=== PATIENT | female | born 1965 | race Caucasian/White ===

== ENCOUNTER 2020-04-12 10:55 | Emergency (ER) | payer MEDICAID ==
[~2020-04-12] VITALS: Ht 172.7 cm; Wt 45.4 kg
--- NOTE | 2020-04-12 12:03 | NUR ---
PATRICIA Mccurdy Note: ANNIA TRUONG Addendum: 04/12/20 at 1203 by DEYANIRA SW. FELICIA KINSEY
--- NOTE | 2020-04-12 12:51 | NUR ---
Social Work This SW received a consult from the ED due to homelessness. This SW met with patient who is homeless, stating she is does not have any income, recently moved to [facility] from [place] and not receiving any benefits here, i.e. [employer], [employer]. Patient requesting senior living information. Patient will also require follow with outpatient mental health services, along with primary MD. This SW provided instruction, address and map (to take the bus) to the senior living of patients choice (list provided to choose from). Patient requesting to discharge to the [facility], as well as plans to follow up with [facility] Print Line Supervisor for GR and food stamps (when able; currently closed due to COVID). This SW provided address and map routes for both, along with Mental Health and [facility] (for [facility]). Patient stating she had spoken with [facility]: Baljinder Serrano @ [phone]; waiting for a bed. This SW left a message with Baljinder; awaiting call back at this time. Patient aware to continue making efforts to contact Baljinder. Patient also plans to reapply for a free phone (expressing awareness regarding the process for this). Social Security office location provided; patient to apply for SSI, when able. Patient remains alert/oriented x4, making own decisions. Patient also remains independent with all ADLS, ambulatory throughout the ED, to the nurses station. No other needs or concerns; patient does not verbalize any SI/HI, pleasant and cooperative.
--- NOTE | 2020-04-12 14:00 | NUR ---
ELOPEMENT: pt. left ER screaming before getting her d/c instructions with prescription
[2020-04-12 20:11] VITALS: BP 136/81
--- NOTE | 2020-04-13 16:27 | Emergency Room Report ---
History of Present Illness General Chief Complaint: Skin Rash/Abscess Source: Patient Present Illness HPI 55-year-old female presents the ED for evaluation. States she has parasites growing in her head and and under her skin. States she brought samples of the parasites to look out. States she is been seen on multiple hospitals and states nothing was done for her. States she came here from [place]. States she does not have a identification or place to stay. Denies substance use. Denies SI or HI. No other aggravating relieving factors. Denies any other associated symptoms Allergies: Coded Allergies: PENICILLINS (Verified Allergy, Unknown, 04/12/20) SULFA (SULFONAMIDE ANTIBIOTICS) (Verified Allergy, Unknown, 04/12/20) COVID-19 Screening Contact w/high risk pt: No Experienced COVID-19 symptoms?: No COVID-19 Testing performed DIRECTOR OF BUSINESS DEVELOPMENT: No Patient History Past Medical History: psych hx Past Surgical History: none Pertinent Family History: none Social History: Denies: smoking, alcohol use, drug use Last Menstrual Period: na Now: No Immunizations: UTD Reviewed Nursing Documentation: PMH: Agreed; PSxH: Agreed Nursing Documentation-PMH Past Medical History: No History, Except For History Of Psychiatric Problem: Yes - depression Review of Systems All Other Systems: negative except mentioned in HPI Physical Exam Vital Signs Date Time Temp Pulse Resp B/P (MAP) Pulse Ox O2 Delivery O2 Flow Rate FiO2 04/12/20 11:20 98.2 77 20 136/81 (99) 98 Room Air Sp02 EP Interpretation: reviewed, normal General Appearance: no apparent distress, alert, GCS 15, non-toxic Head: normocephalic, atraumatic Eyes: bilateral eye normal inspection, bilateral eye PERRL ENT: hearing grossly normal, normal pharynx, no angioedema, normal voice Neck: full range of motion, supple/symm/no masses Respiratory: chest non-tender, lungs clear, normal breath sounds, speaking full sentences Cardiovascular #1: regular rate, rhythm, no edema Cardiovascular #2: 2+ carotid (R), 2+ carotid (L), 2+ radial (R), 2+ radial (L), 2+ dorsalis pedis (R), 2+ dorsalis pedis (L) Gastrointestinal: normal bowel sounds, non tender, soft, non-distended, no guarding, no rebound Rectal: deferred Genitourinary: normal inspection, no CVA tenderness Musculoskeletal: back normal, normal range of motion, gait/station normal, non- tender Neurologic: alert, motor strength/tone normal, oriented x3, sensory intact, responsive, speech normal Psychiatric: judgement/insight normal, memory normal, mood/affect normal, no suicidal/homicidal ideation Reflexes: 3+ bicep (R), 3+ bicep (L), 3+ tricep (R), 3+ tricep (L), 3+ knee (R), 3+ knee (L) Lymphatic: no adenopathy Medical Decision Making Diagnostic Impression: Primary Impression: Rash and other nonspecific skin eruption ER Course Hospital Course 55 yo F states she is got chronic parasites growing under her skin. Differential diagnoses include: Cellulitis, dermatitis, insect bite, substance abuse, scabies Clinical course Patient placed in chair. After initial history, physical exam reveals a female in no acute distress. Patient has no observable skin breakdowns. Patient shows me a vial and states there are parasites in there. There are dried twigs in the rocks and there. There could be a component of psychiatric as well as substance abuse. Patient states that she does not have identification to get prescriptions. Does not have a place to stay. Presented with her luggage Contacted social work who provided patient with resources. Was going to help patient fill her prescriptions however patient walked out of ED screaming and yelling prior to receiving her discharge paperwork and prescriptions Diagnosis - rash patient eloped from ED Last Vital Signs Date Time Temp Pulse Resp B/P (MAP) Pulse Ox O2 Delivery O2 Flow Rate FiO2 04/12/20 20:11 98.2 20 136/81 98 Room Air 04/12/20 11:20 77 Status: improved Disposition: ELOPED Condition: Stable Referrals: ALEXREFERRING (PCP) Royce Chang MD Apr 13, 2020 16:27
== END 2020-04-12 14:00 | disposition home or self-care (01) ==
LOC: EMR 11:28
DX: R21 Rash and other nonspecific skin eruption (principal); F32.9 Major depressive disorder, single episode, unspecified; Z88.0 Allergy status to penicillin; Z88.2 Allergy status to sulfonamides
CPT/HCPCS: 99282

== ENCOUNTER 2020-07-10 13:29 | Emergency (ER) | payer MEDICAID ==
[~2020-07-10] VITALS: Ht 172.7 cm; Wt 59.0 kg
[2020-07-10 13:41] VITALS: BP 157/79
--- NOTE | 2020-07-10 14:56 | Emergency Room Report ---
History of Present Illness General Chief Complaint: Skin Rash/Abscess Present Illness HPI 55-year-old female with multiple complaints of chronic rash in the scalp patient has been here multiple times for the same complaint. Also reports that she goes from hospital to hospital for noncompliant. Reports" that I need a prudent move daily Xanax and 9 here right away." Appears to be on a substance. Also complains of chronic right hip pain reports that she fell and feels like this is dislocated. Patient is very aggressive, yells, and request complete checkup. Patient reports that she does not want to go see her primary doctor as it is hard for her to move around and establish a primary doctor. 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: No Patient History Past Medical History: see triage record Past Surgical History: none Pertinent Family History: none Now: No Immunizations: UTD Reviewed Nursing Documentation: PMH: Agreed; PSxH: Agreed Nursing Documentation-PMH Hx Hypertension: Yes Review of Systems All Other Systems: negative except mentioned in HPI Physical Exam Vital Signs Date Time Temp Pulse Resp B/P (MAP) Pulse Ox O2 Delivery O2 Flow Rate FiO2 07/10/20 13:34 98.2 96 16 157/79 (105) 97 Room Air Sp02 EP Interpretation: reviewed, normal General Appearance: no apparent distress, alert, GCS 15, non-toxic Head: normocephalic, atraumatic Eyes: bilateral eye normal inspection, bilateral eye PERRL ENT: hearing grossly normal, normal pharynx, no angioedema, normal voice Neck: full range of motion, supple/symm/no masses Respiratory: chest non-tender, lungs clear, normal breath sounds, speaking full sentences Cardiovascular #1: regular rate, rhythm, no edema Gastrointestinal: normal bowel sounds, non tender, soft, non-distended, no guarding, no rebound Musculoskeletal: back normal, no calf tenderness, pelvis stable, gait/station normal, non-tender Neurologic: alert, motor strength/tone normal, oriented x3, sensory intact, responsive, speech normal Psychiatric: judgement/insight normal, memory normal, mood/affect normal, no suicidal/homicidal ideation Skin: no rash Lymphatic: no adenopathy Medical Decision Making PA Attestation All diagnoses and treatment plans were reviewed and discussed with my supervising physician Dr. Slaughter Diagnostic Impression: Primary Impression: Chronic pruritic rash in adult Additional Impression: Chronic pain ER Course 55-year-old female with multiple complaints of chronic rash in the scalp patient has been here multiple times for the same complaint. Also reports that she goes from hospital to hospital for noncompliant. Reports" that I need a prudent move daily Xanax and 9 here right away." Appears to be on a substance. Also complains of chronic right hip pain reports that she fell and feels like this is dislocated. Patient is very aggressive, yells, and request complete checkup. Patient reports that she does not want to go see her primary doctor as it is hard for her to move around and establish a primary doctor. Ddx considered but are not limited to: Eczema, scabies, lice, Vital signs: are WNL, pt. is afebrile H&PE are most consistent with:head lice, chronic hip pain ORDERS: hip X-ray, permetherin, tylenol ED INTERVENTIONS: None required at this time. Patient is already aware of previous fracture of the right femur [id number]. pt to f/u with solar energy specialist. pt is walking, bending, weightbearing with no problem DISCHARGE: At this time pt. is stable for d/c to home. Will provide printed patient care instructions, and any necessary prescriptions. Care plan and follow up instructions have been discussed with the patient prior to discharge. Patient is to be escorted out by security as care for lengthening of one of the full checkup given insisting on any tested for Covid even though I explained to her that we do not routinely test for that however patient was not interested to find above symptoms that do have been sustained in her hip is dislocated is replaced back pain. Other X-Ray Diagnostic Results Other X-Ray Diagnostic Results : X-Ray ordered: Right hip # of Views/Limited Vs Complete: 1 View Indication: Pain EP Interpretation: Yes PA Xray: Interpretation reviewed, by supervising MD, and agrees with findings. Interpretation: no dislocation, no soft tissue swelling, no fractures Impression: No acute disease Electronically Signed by: Kim GONZALEZ Scribe Text possible old fx femur Last Vital Signs Date Time Temp Pulse Resp B/P (MAP) Pulse Ox O2 Delivery O2 Flow Rate FiO2 07/10/20 13:41 98.2 16 157/79 97 Room Air 07/10/20 13:34 96 Disposition: HOME, SELF-CARE Condition: Stable Scripts Acetaminophen* (TYLENOL EXTRA STRENGTH*) 500 Mg Tablet 500 MG ORAL Q8H PRN for Prn Headache/Temp > 101, #30 TAB 0 Refills Prov: Kim Hodgson 07/10/20 Permethrin* (ELIMITE*) 60 Gm Cream..g. 1 APPLIC TOPIC ONCE, #60 GM 0 Refills Apply cream from head to toe; leave on for 8-14 hours before washing off with water; may reapply in 1 week if live mites appear. Prov: Kim Hodgson 07/10/20 Referrals: NOT CHOSEN IPA/,REFERRING (PCP) Patient Instructions: Rash Additional Instructions: At this time he needs establish a primary doctor for referral to offal icer poultry, also follow-up with primary doctor for orthopedic referral due to chronic hip pain. If worsening symptoms return to the emergency room Kim Hodgson Jul 10, 2020 14:56
[2020-07-10] MEDS ORDERED: PERMETHRIN60 GM TOPIC (14:57)
[2020-07-10] MEDS ORDERED: TYLENOL EXTRA500 MG ORAL (14:57)
[2020-07-10 15:05] VITALS: BP 157/79
--- NOTE | 2020-07-10 15:42 | Diagnostic Imaging Report ---
EXAM: XR Right Hip With Pelvis When Performed, 2 or 3 Views CLINICAL HISTORY: TRAUMA TECHNIQUE: Two or three views of the right hip with pelvis when performed. COMPARISON: No relevant prior studies available. FINDINGS: Bones/joints: Fracture of the greater trochanter of the right femur. These can be associated with occult intertrochanteric fractures. Question whether patient is weightbearing. No dislocation. Soft tissues: Abundant stool. IMPRESSION: Fracture of the greater trochanter of the right femur. These can be associated with occult intertrochanteric fractures. Question whether patient is weightbearing.
== END 2020-07-10 15:05 | disposition home or self-care (01) ==
LOC: EMR 13:50
DX: L29.9 Pruritus, unspecified (principal); G89.29 Other chronic pain; I10 Essential (primary) hypertension; Z88.0 Allergy status to penicillin; Z88.2 Allergy status to sulfonamides
CPT/HCPCS: 73501; Z7502; 99283